=== PATIENT | male | born 1945 | race Caucasian/White ===

== ENCOUNTER 2016-11-15 08:30 | Outpatient (CLI) | payer MEDICARE, OTHER ==
[2016-11-15 09:45] LABS: eGFR (African) > 60; eGFR (Non-African) > 60
== END 2016-11-15 08:32 ==
LOC: LAB 08:30
PROVIDERS: ATTEND Family Medicine
DX: E11.9 Type 2 diabetes mellitus without complications (principal); E78.00 Pure hypercholesterolemia, unspecified; I10 Essential (primary) hypertension
CPT/HCPCS: 36415; 80053; 80061; 82043; 83036

== ENCOUNTER 2017-11-28 09:23 | Outpatient (CLI) | payer MEDICARE, OTHER ==
[2017-11-28 10:02] LABS: eGFR (African) > 60; eGFR (Non-African) > 60
== END 2017-11-28 09:24 ==
LOC: LAB 09:23
PROVIDERS: ATTEND Family Medicine
DX: E11.9 Type 2 diabetes mellitus without complications (principal); E78.00 Pure hypercholesterolemia, unspecified
CPT/HCPCS: 36415; 80053; 80061; 82043; 83036

== ENCOUNTER 2018-05-28 08:16 | Outpatient (CLI) | payer MEDICARE ==
[2018-05-28 09:30] LABS: eGFR (Non-African) > 60
== END 2018-05-28 08:17 ==
LOC: LAB 08:16
PROVIDERS: ATTEND Family Medicine
DX: E11.9 Type 2 diabetes mellitus without complications (principal); I10 Essential (primary) hypertension
CPT/HCPCS: 36415; 80053; 83036

== ENCOUNTER 2018-11-25 08:05 | Outpatient (CLI) | payer MEDICARE, OTHER | END 2018-11-25 08:07 | LOC: LAB 08:05 | PROVIDERS: ATTEND Family Medicine | DX: E11.9 Type 2 diabetes mellitus without complications (principal); E78.00 Pure hypercholesterolemia, unspecified | CPT/HCPCS: 80053; 80061; 82043; 83036 ==

== ENCOUNTER 2019-06-01 10:29 | Outpatient (CLI) | payer MEDICARE, OTHER ==
[2019-06-01 13:20] LABS: A1C 6.3 % (<5.7)
[2019-06-01 13:43] LABS: eGFR (Non-African) > 60
== END 2019-06-01 10:34 ==
LOC: LAB 10:29
PROVIDERS: ATTEND Family Medicine
DX: E11.9 Type 2 diabetes mellitus without complications (principal); I10 Essential (primary) hypertension
CPT/HCPCS: 36415; 80053; 83036

== ENCOUNTER 2019-06-15 10:09 | Outpatient (CLI) | payer MEDICARE, OTHER ==
--- NOTE | 2019-06-15 10:58 | Diagnostic Imaging Report ---
PATIENT MR#: [id number] PATIENT PATIENT NAME: SAIMA MORENO DATE OF : 1945 REFERRING PHYSICIAN: Kp Joshi EXAM DATE: 06/15/2019 ACCESSION NUMBER: [id number] EXAM DESCRIPTION: US RETROPERITONEAL COMPLETE ultrasound bilateral kidneys and bladder Indication: REASON: ESSENTIAL HYPERTENSION HISTORY: PT STATES HE HAD HIGH BLOOD PRESSURE WHEN HE CAME INTO THE DOCTOR. Note time : 06/15/2019 10:40:42 AM User : Irena felipe REASON: ESSENTIAL HYPERTENSION HISTORY: PT STATES HE HAD HIGH BLOOD PRESSURE WHEN HE CAME INTO THE DOCTOR. NO OTHER SYMPTOMES HYPERTENSION (Pt comments) (DICOM Hx) Findings: Ultrasonographic examination without prior shows the right kidney measures 11.00 x 6.34 x 5.27 cm and left kidney to measure 11.16 x 6.65 x 5.27 cm. The urinary bladder is unremarkable. Bilateral ureteral jets are pres ent. There is no hydronephrosis. Impression: Unremarkable exam Read by: Dr. Herb Cardona Transcribed by: Transcribed Date: Electronically signed by: Dr. Herb Cardona Date signed: 06/15/2019 10:57:54 AM
== END 2019-06-15 10:19 ==
LOC: RAD 10:09
PROVIDERS: ATTEND Family Medicine
DX: I10 Essential (primary) hypertension (principal)
CPT/HCPCS: 76770

== ENCOUNTER 2019-06-27 21:19 | Emergency (ER) | payer MEDICARE, OTHER ==
[2019-06-27] MEDS ORDERED: ASPIRIN 81 MG CHEW TAB PO ONE (21:39)
--- NOTE | 2019-06-27 21:40 | ED Physician Documentation ---
General Adult - HISTORIAN Historian: patient - HPI Stated Complaint: high blood pressure Chief Complaint: General Adult Additional Information: Patient presents to ED with high blood pressure. Patient states he was at home watching the weather forecast when he began to feel flushed, follow by some chest pressure and shortness of breath. He took this blood pressure and it was 207/102. Dr. Joshi has been adjusting/adding blood pressure meds over the past two weeks. Patient states he was on Metoprolol and lisinopril. Dr. Joshi added HCTZ and Amlodipine 2 weeks ago. While in the ER he is chest pain and chest pressure free. Blood pressure 174/84. Onset: hours (2) Timing: better Severity: mild - ROS CONST: denies: fever EYES/ENT: none CVS/RESP: chest pain, shortness of breath GI/: denies: vomiting, nausea MS/SKIN/LYMPH: none NEURO/PSYCH: denies: headache - PAST HX Past History: hypertension Other History: none Surgeries/Procedures: none Allergies/Adverse Reactions: Allergies Allergy/AdvReac Type Severity Reaction Status Date / Time No Known Drug Allergies Allergy Mild Verified 06/27/19 22:33 Home Medications: Ambulatory Orders Medication Instructions Recorded Aspirin [Aspir 81] 81 mg PO DAILY u2 11/21/15 Amlodipine Besylate/Benazepril 10 mg PO DAILY 06/27/19 [Amlodipine-Benazepril 10-20 mg] Lisinopril 20 mg PO DAILY 06/27/19 Multivitamin [Multiple Vitamins] 3 tab PO 06/27/19 Pravastatin Sodium 40 mg PO DAILY 06/27/19 - SOCIAL HX Smoking History: non-smoker Alcohol Use: none Drug Use: none - FAMILY HX Family History: No - REVIEWED ASSESSMENTS Nursing Assessment Reviewed: Yes Vitals Reviewed: Yes Progress - EKG/XRAY/CT Comments: 2[address] elevation ED Results Lab/Radiology - Radiology Radiology Impressions: Report Submission Date: Jun 27, 2019 10:37:39 PM MARBLE CARVER Patient Study Name: SAIMA MORENO Date: Jun 27, 2019 10:02:59 PM MARBLE CARVER Modality Type: DX Gender: M Description: CHEST 1VIEW : 43 Institution: [facility] Physician: NIDHI TAMEZ CHEST XRAY HISTORY: Chest pain, hypertension. FINDINGS: Erect AP portable chest x-ray dated June 27, 2019 at 2202 demonstrates lungs to be clear of focal infiltrates and expanded bilaterally. Cardiac silhouette and bony thorax are unremarkable. ECG leads overlie the chest obscuring detail. IMPRESSION: No active intrathoracic disease seen. Electronically signed on Jun 27, 2019 10:37:39 PM MARBLE CARVER by: Cale Rodríguez - Orders Orders: ED Orders Category Date Time Status Continuous EKG monitoring Q1H Care 06/27/19 21:[address] IV Lock 1T Care 06/27/19 21:38 Ordered CHEST 1VIEW [RAD] Stat Exams 06/27/19 Ordered CBC/PLATELET/DIFF Routine Lab 06/27/19 Ordered CMP Routine Lab 06/27/19 Ordered NT BNP Stat Lab 06/27/19 Ordered TROPONIN I Stat Lab 06/27/19 Ordered Aspirin [Rodrick] Med 06/27/19 21:39 Once 324 mg PO NOW ONE EKG WITH COMPARISON Stat Ther 06/27/19 Ordered General Adult Physical Exam - PHYSICAL EXAM GENERAL APPEARANCE: no distress EENT: MADI NECK: normal inspection RESPIRATORY: no resp distress, chest non-tender, breath sounds normal CVS: reg rate & rhythm, heart sounds normal ABDOMEN: soft BACK: normal inspection SKIN: warm/dry EXTREMITIES: non-tender NEURO: oriented X3, mood/affect nml Discharge Clincal Impression: Anxiety Referrals: Kp Joshi MD [Primary Care Provider] - 2 Days Additional Instructions: 1. Take home medications as previously prescribed 2. Use deep breathing, meditation or other calming activities when you feel yourself getting anxious 3. Follow up with Dr. Joshi as already scheduled 4. Return to ER for new or worsening symptoms Decision to Admit: NO Date of Decison to Admit: 06/27/19 Decision Time: 23:19
[2019-06-27 22:49] LABS: BASOPHILS % 0.3 % (0.0-1.5); NEUTROPHILS # 6.2 # k/uL (1.4-7.7)
[2019-06-27 22:56] LABS: eGFR (Non-African) > 60
[2019-06-27 23:40] VITALS: BP 157/87
--- NOTE | 2019-06-29 11:11 | Diagnostic Imaging Report ---
[facility] [id number] [facility] [id number] Patient Name: SAIMA MORENO Referring Physician: NIDHI VALDES Date of : 1945 Gender: M Date of Service: 06/27/2019 Exam Requested: CHEST 1VIEW CHEST XRAY HISTORY: Chest pain, hypertension. FINDINGS: Erect AP portable chest x-ray dated June 27, 2019 at 2202 demonstrates lungs to be clear of focal infiltrates and expanded bilaterally. Cardiac silhouette and bony thorax are unremarkable. ECG leads overlie the chest obscuring detail. IMPRESSION: No active intrathoracic disease seen. ewell
== END 2019-06-27 23:25 | disposition home or self-care (01) ==
LOC: ED 21:19
DX: F41.9 Anxiety disorder, unspecified (principal); I10 Essential (primary) hypertension
CPT/HCPCS: 71045; 80053; 83880; 84484; 85025; 93005; 99284; S1016

== ENCOUNTER 2019-07-21 15:01 | Outpatient (CLI) | payer MEDICARE, OTHER | END 2019-07-21 15:32 | LOC: NEPHRO 15:01 | PROVIDERS: ATTEND Internal Medicine Nephrology | DX: I10 Essential (primary) hypertension (principal) | CPT/HCPCS: G0463 ==